=== PATIENT | female | born 2000 | race Asian ===

== ENCOUNTER 2019-11-12 16:14 | Emergency (ER) | payer SELFPAY ==
[~2019-11-12] VITALS: Ht 131 cm; Wt 55.0 kg
[2019-11-12 17:23] VITALS: BP 122/67; PULSE 81; TEMP 97.6
== END 2019-11-12 17:35 | disposition home or self-care (01) ==
LOC: COL.ER 16:14
DX: S61.211A Laceration without foreign body of left index finger without damage to nail, initial encounter (principal); Z88.0 Allergy status to penicillin; W26.0XXA Contact with knife, initial encounter; Y92.219 Unspecified school as the place of occurrence of the external cause